=== PATIENT | female | born 1990 | race Caucasian/White ===

== ENCOUNTER 2020-10-22 09:58 | Inpatient (IN) ==
[2020-10-22] MEDS ORDERED: *HR* Nalbuphine 10 MG/ML AMPUL IV PRN (10:07)
[2020-10-22] MEDS ORDERED: Ondansetron 4 MG/2 ML VIAL IVP PRN (10:07)
[2020-10-22] MEDS ORDERED: Lidocaine 1% 20 ML MDV INFILT PRN (10:07)
[2020-10-22] MEDS ORDERED: Azithromycin 500 MG in 0.9 % Sodium Chloride 250 ML IVPB ONE ×2 (10:07→21:14)
[2020-10-22] MEDS ORDERED: Famotidine 20 MG/2 ML VIAL IVP PRN (10:07)
[2020-10-22] MEDS ORDERED: Metoclopramide 10 MG/2 ML VIAL IVP PRN (10:07)
[2020-10-22] MEDS ORDERED: Ringers Solution, Lactated 1,000 ML IVC SCH (10:15)
[2020-10-22] MEDS ORDERED: Oxytocin 20 units/ LR 1000 mL 20 UNIT/1,000 ML BAG IVC SCH (10:15)
[2020-10-22 10:42] LABS: Basophils % 0.4 %; Eosinophils % 0.2 %; Hematocrit 40.8 % (35.3-44.9); Immature Granulocytes % 0.3 % (0-4); Immature Platelets 22.7 % (1.1-6.1); Lymphocytes # 1.5 K/mcL (0.6-4.6); Lymphocytes % 15.5 %; Mean Corpuscular HGB Conc 31.9 g/dL (31.6-35.5); Mean Corpuscular Volume 87.9 fL (83.0-100.0); Mean Platelet Volume 13.4 fL (9.4-12.4); Monocytes # 0.5 K/mcL (0.0-1.3); Neutrophils # 7.8 K/mcL (1.6-8.9); Platelet Count 170 K/mcL (140-400); Red Blood Count 4.64 M/mcL (3.82-4.97); Segmented Neutrophils % 78.6 %; White Blood Count 9.9 K/mcL (4.3-11.1)
[2020-10-22 10:44] LABS: Amphetamine Screen,Urine Negative ng/mL (Cutoff=1000); Barbiturate Screen,Urine Negative ng/mL (Cutoff=200); Benzodiazepines Screen,Urine Negative ng/mL (Cutoff=200); Cannabinoid Screen,Urine Negative ng/mL (Cutoff = 50); Cocaine Screen,Urine Negative ng/mL (Cutoff= 300); Opiate Screen,Urine Negative ng/mL (Cutoff=300); Phencyclidine Screen,Urine Negative ng/mL (Cutoff=25)
[2020-10-22] MEDS ORDERED: EPHEDrine 50 MG/ML VIAL IVP PRN (12:36)
[2020-10-22] MEDS ORDERED: Epidural Premix (fent/bupiv) 110 ML EP SCH (12:45)
[2020-10-22] MEDS ORDERED: Ropivacaine/PF 0.2% 20 ML VIAL ONE (19:16)
[2020-10-22] MEDS ORDERED: *HR* FentaNYL (PF) 100 MCG/2 ML VIAL ONE ×2 (19:16→22:08)
[2020-10-22] MEDS ORDERED: Famotidine 20 MG/2 ML VIAL IVP ONE (21:13)
[2020-10-22] MEDS ORDERED: Metoclopramide 10 MG/2 ML VIAL IVP ONE (21:13)
[2020-10-22] MEDS ORDERED: CeFAZolin 2,000 MG/50 ML BAG IVPB ONE (21:13)
[2020-10-22] MEDS ORDERED: Lidocaine -MPF 2% 5 ML VIAL ONE ×3 (21:14→22:00)
[2020-10-22] MEDS ORDERED: 0.9 % Sodium Chloride 1,000 ML IVC SCH (21:15)
[2020-10-22] MEDS ORDERED: *HR* Phenylephrine 10 MG/ML VIAL ONE (21:15)
[2020-10-22] MEDS ORDERED: Ringers Solution, Lactated 1,000 ML ONE (21:59)
[2020-10-22] MEDS ORDERED: Acetaminophen IV 1,000 MG/100 ML BAG IVPB ONE (21:59)
[2020-10-22] MEDS ORDERED: *HR* Midazolam HCl 2 MG/2 ML VIAL ONE (22:08)
[2020-10-22] MEDS ORDERED: *HR* Morphine Sulfate/PF 10 MG/10 ML AMPUL ONE (22:15)
[2020-10-22] MEDS ORDERED: Ondansetron 4 MG/2 ML VIAL ONE (22:22)
[2020-10-22] MEDS ORDERED: Ketorolac 30 MG/ML VIAL ONE (22:35)
[2020-10-22] MEDS ORDERED: *HR* OxyCODONE Immed Rel 5 MG TABLET PO PRN (23:09)
[2020-10-22] MEDS ORDERED: *HR* FentaNYL (PF) 100 MCG/2 ML VIAL IVP PRN (23:09)
[2020-10-23] MEDS ORDERED: Ondansetron 4 MG/2 ML VIAL IVP PRN (01:41)
[2020-10-23] MEDS ORDERED: Ringers Solution, Lactated 1,000 ML IVC SCH (01:41)
[2020-10-23] MEDS ORDERED: Sennosides 8.6 MG TABLET PO PRN (01:41)
[2020-10-23] MEDS ORDERED: Rho Immune Globulin 1,500 UNIT SYRINGE IM ONE (01:41)
[2020-10-23] MEDS ORDERED: Simethicone 80 MG TAB.CHEW PO PRN (01:41)
[2020-10-23] MEDS ORDERED: Oxytocin 20 units/ LR 1000 mL 20 UNIT/1,000 ML BAG IVC SCH (01:41)
[2020-10-23] MEDS ORDERED: Metoclopramide 10 MG/2 ML VIAL IVP PRN (01:41)
[2020-10-23] MEDS ORDERED: Acetaminophen 325 MG TABLET PO PRN (01:46)
[2020-10-23] MEDS: Oxytocin 20 units/ LR 1000 mL 20 UNIT/1,000 ML BAG IVC SCH ×2 (02:30→10:42)
[2020-10-23] MEDS: *HR* OxyCODONE Immed Rel 5 MG TABLET PO PRN ×6 (03:55→22:52)
[2020-10-23] MEDS: Ibuprofen 600 MG TABLET PO SCH ×4 (06:31→23:45)
[2020-10-23] MEDS: Prenatal Vit/FA 1 EACH TABLET PO SCH (08:50)
[2020-10-23 11:15] LABS: Basophils % 0.2 %; Hematocrit 34.2 % (35.3-44.9); Platelet Count 178 K/mcL (140-400)
[2020-10-23 11:18] LABS: Hemoglobin 10.9 g/dL (11.5-15.4); Immature Granulocytes % 0.6 % (0-4); Immature Platelets 22.6 % (1.1-6.1); Lymphocytes # 1.8 K/mcL (0.6-4.6); Lymphocytes % 7.9 %; Mean Corpuscular HGB Conc 31.9 g/dL (31.6-35.5); Mean Corpuscular Hemoglobin 27.8 pg (28.0-33.3); Mean Corpuscular Volume 87.2 fL (83.0-100.0); Mean Platelet Volume 13.5 fL (9.4-12.4); Monocytes # 0.7 K/mcL (0.0-1.3); Monocytes % 2.9 %; Red Blood Count 3.92 M/mcL (3.82-4.97); Segmented Neutrophils % 88.4 %
[2020-10-23 11:25] LABS: Basophils # 0.1 K/mcL (0.0-0.2); Neutrophils # 20.3 K/mcL (1.6-8.9)
[2020-10-23] MEDS: Acetaminophen 325 MG TABLET PO SCH ×3 (12:09→23:46)
[2020-10-24] MEDS: *HR* OxyCODONE Immed Rel 5 MG TABLET PO PRN ×2 (02:48→06:49)
[2020-10-24] MEDS: Ibuprofen 600 MG TABLET PO SCH (06:11)
[2020-10-24] MEDS: Acetaminophen 325 MG TABLET PO SCH (06:11)
[2020-10-24 07:54] VITALS: BP 108/72
[2020-10-24] MEDS: Prenatal Vit/FA 1 EACH TABLET PO SCH (07:58)
== END 2020-10-24 11:50 | disposition home or self-care (01) | DRG 788 ==
LOC: 1NENULAB 09:58 → 1NENUOBS 10-23 01:26
PROVIDERS: ADMIT Student in an Organized Health Care Education/Training Program; ATTEND Student in an Organized Health Care Education/Training Program